=== PATIENT | male | born 1935 | race Caucasian/White ===

== ENCOUNTER → 2023-07-22 09:33 | Outpatient (REF) | payer MEDICARE, SELFPAY ==
[2023-07-22 12:25] LABS: PSA, Total - Diagnostic 0.49 ng/ml (0.0-4.0)
[2023-07-22 12:28] LABS: Testosterone, Total 9.1 ng/dl (72-623)
== END ==
LOC: REG 09:33
PROVIDERS: ATTENDING PHYSICIAN Urology; FAMILY PHYSICIAN Internal Medicine
DX: R97.20 Elevated prostate specific antigen [PSA] (principal); D40.0 Neoplasm of uncertain behavior of prostate; C61 Malignant neoplasm of prostate
CPT/HCPCS: 36415; 84153; 84403

== ENCOUNTER 2024-03-15 10:20 | Emergency (ER) | payer MEDICARE, SELFPAY ==
[2024-03-15 10:38] VITALS: BP 153/80
--- NOTE | 2024-03-15 12:02 | ED.GENMED ---
History of Present Illness
General
Chief Complaint: Musculo-Skeletal Complaint
Source: patient
Exam Limitations: none
Time Seen by Provider: 03/15/24 11:30
Nursing documentation reviewed up to this point in time: agreed with
History of Present Illness
History of Present Illness:
88-year-old male presents to the ER for evaluation. 2 days ago patient was walking down the basement steps and fell back falling down 2 steps hitting his neck on the floor. He reports he may have hit his head however no loss of conscious no
headache but does complain of neck soreness and stiffness since then. He denies any radiation of pain. Denies any upper or lower extremity numbness tingling weakness. Pt is not on blood thinners.
Past History
Past History
ED Past Medical History: None
ED Past Surgical History: None
Social History
Tobacco: Non-smoker
Alcohol: None
Drug: None
Living: with family
Review of Systems
Review of Systems
Allergies reviewed?: Yes
All Other Systems: ROS reviewed and negative except as documented in HPI and ROS
Constitutional: Reports no symptoms
Respiratory: Reports no symptoms
Cardiac: Reports no symptoms
ABD/GI: Reports no symptoms
Musculoskeletal: Reports neck pain
Skin: Reports no symptoms
Neurological: Denies dizzy or headache (no loss of conscious)
Psychiatric: Reports no symptoms
Phy Exam
General Physical Exam
General Presentation: no apparent distress
General age: appears stated age
General Skin: warm and dry
General Habitus: normal
General Mental: alert
General Hydration: appears well hydrated
Neurological Exam
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
Musculoskeletal Exam
Musculoskeletal Exam: other (No obvious head injury on exam mildly tender throughout cervical spine bilateral paraspinal muscles as well; discomfort with moving neck left to right)
Skin Exam
Skin Exam: normal color and warm/dry
Psychiatric Exam
Psychiatric Exam: normal mood/affect
Course
Orders/Labs/Results
Orders:
Orders
03/15/24 12:03
CT Cervical Spine W/o Iv Contr Urgent
Comment:
Reason For Exam: trauma
CT Head W/o Iv Contrast Urgent
Comment:
Reason For Exam: trauma
Vital Signs
Initial and Last Documented VS:
Initial Vital Signs
Temp Pulse Resp BP Pulse Ox
97.8 F 63 16 153/80 98
03/15/24 10:38 03/15/24 10:38 03/15/24 10:38 03/15/24 10:38 03/15/24 10:38
Last Documented Vital Signs
Temp Pulse Resp BP Pulse Ox
97.8 F 63 16 153/80 98
03/15/24 10:38 03/15/24 10:38 03/15/24 10:38 03/15/24 10:38 03/15/24 10:38
MDM/Problems Addressed
Differential Diagnosis Includes:
Not limited cervical fracture or strain
MDM/Problems Addressed:
Symptoms are consistent with cervical strain no obvious fractures on x-ray. Additional findings of parotid gland reviewed with patient discussed the importance of outpatient follow-up with family doctor for additional imaging. Discussed warm moist
heat Tylenol
*Radiology
Radiology exam reviewed: radiology read reviewed
*Pulse Oximetry
Patient hypoxic: no
*Critical Care Note
Total Time (30-74mins, 75-104mins- exclusive of procedures): Not Applicable
ED Attending Note
-
Portions of this chart may have been created with voice recognition software.� Occasional wrong word or��sound alike� substitutions may have occurred due to the inherent limitations of voice recognition software.
Discharge Plan
Departure
Patient Disposition: Home (Routine Discharge)
Date of Disposition: 03/15/24
Time of Disposition: 13:42
Patient with high blood pressure during this ER visit?: Yes
Condition: Fair
Covid-19: Not Applicable
Discharge Problem:
cervical strain
Instructions: Muscle Strain (DC)
Referrals:
UNKNOWN - PT DOES,NOT KNOW [Family Provider] -
Activity Restrictions/Additional Instructions:
As discussed there are no fractures of your neck and your CAT scan of your head was unremarkable. Symptoms are likely muscle strain. Warm moist heat several times a day may take Tylenol as needed. In addition please follow-up with a family doctor
for additional findings on your CAT scan as reviewed. Return if any worsening of symptoms.
Interventions
Interventions:
*Risk Screen - Suicide Last Done: 03/15/24 10:38
*General Assessment Last Done: 03/15/24 11:26
*Neglect/Abuse Screening Last Done: 03/15/24 10:38
*ED COVID-19 Vaccine History Last Done: 03/15/24 11:26
ED-Musculoskeletal Assessment Last Done: 03/15/24 11:26
Discharge Date and Time
Print Language: CITIZEN OF [place]
[2024-03-15 13:59] VITALS: BP 151/72
== END 2024-03-15 14:00 | disposition home or self-care (01) ==
LOC: EMR 10:20
PROVIDERS: EMERGENCY PHYSICIAN Student in an Organized Health Care Education/Training Program
DX: S16.1XXA Strain of muscle, fascia and tendon at neck level, initial encounter (principal); W10.9XXA Fall (on) (from) unspecified stairs and steps, initial encounter
CPT/HCPCS: 99284; 70450; 72125

== ENCOUNTER → 2024-07-20 08:25 | Outpatient (REF) | payer MEDICARE, SELFPAY ==
[2024-07-20 09:07] LABS: % Basophils 0.3 % (0-2); % Eosinophils 0.4 % (0-6); % Immature Granulocytes 0.2 % (0-0.5); % Lymphocytes 13.8 % (20.5-51.1); % Neutrophils 79.3 % (42.2-75.2); Absolute Lymphocytes 1.3 10^3/uL (1.2-3.4); Absolute Monocytes 0.6 10^3/uL (0.1-0.6); Absolute Neutrophils 7.4 10^3/uL (1.4-6.5); Hemoglobin 13.8 g/dL (13.0-18.0); Mean Corp Hgb Conc. 32.9 g/dL (33.0-37.0); Mean Corpuscular Hgb 28.5 pg (27.0-31.0); Mean Corpuscular Volume 86.8 fL (80.0-94.0); Mean Platelet Volume 9.9 fL (7.4-10.4); Nucleated Red Blood Cells % 0 % (-); Platelet Count 218 10^3/uL (130-400); Red Blood Cell Count 4.84 10^6/uL (4.70-6.10); Red Cell Dist. Width 13.9 % (11.5-14.5); White Blood Cell Count 9.4 10^3/uL (4.8-10.8)
[2024-07-20 09:27] LABS: ALT (SGPT) 15 U/L (0-50); AST (SGOT) 23 U/L (17-59); Albumin 3.3 g/dl (3.5-5.0); Alkaline Phosphatase 91 U/L (38-126); Blood Urea Nitrogen 15 mg/dl (9-20); Calcium 8.1 mg/dl (8.4-10.2); Carbon Dioxide 38 mmol/L (22-30); Chloride 99 mmol/L (98-107); Glucose 100 mg/dl (70-99); HDL Cholesterol 33 mg/dl; LDL Cholesterol, Calculated 48 mg/dl; Potassium 3.5 mmol/L (3.5-5.1); Sodium 140 mmol/L (135-145); Total Bilirubin 1.4 mg/dl (0.2-1.3); Total Cholesterol 104 mg/dl (50-199); Total Protein 5.9 g/dl (6.3-8.2); Triglyceride 116 mg/dl (10-149); Very Low Density Lipoprotein 23 mg/dl (0-30); eGFR > 60.00
== END ==
LOC: REG 08:25
PROVIDERS: ATTENDING PHYSICIAN Internal Medicine Cardiovascular Disease; FAMILY PHYSICIAN Internal Medicine
DX: E78.5 Hyperlipidemia, unspecified (principal); I10 Essential (primary) hypertension
CPT/HCPCS: 36415; 80053; 80061; 85025

== ENCOUNTER → 2024-10-24 14:15 | Outpatient (REF) | payer MEDICARE, SELFPAY ==
[2024-10-24 15:33] LABS: PSA, Total - Diagnostic 0.39 ng/ml (0.0-4.0)
== END ==
LOC: REG 14:15
PROVIDERS: ATTENDING PHYSICIAN Nurse Practitioner
DX: C61 Malignant neoplasm of prostate (principal)
CPT/HCPCS: 36415; 84153; 84403